=== PATIENT | female | born 1980 | race Caucasian/White ===

== ENCOUNTER 2018-06-10 08:45 | Emergency (ER) | payer MEDICAID ==
[~2018-06-10] VITALS: Ht 180.3 cm; Wt 113.6 kg
[2018-06-10 09:28] VITALS: BP 135/88
[2018-06-10] MEDS ORDERED: KETOROLAC TROMETH 60MG/2ML VIAL IM ONE (10:15)
== END 2018-06-10 11:01 | disposition home or self-care (01) ==
LOC: ER 08:47
DX: M54.41 Lumbago with sciatica, right side (principal); F17.210 Nicotine dependence, cigarettes, uncomplicated
CPT/HCPCS: 96372; 99283; J1885

== ENCOUNTER 2019-06-06 07:40 | Emergency (ER) | payer MEDICAID ==
[~2019-06-06] VITALS: Ht 180.3 cm; Wt 95.3 kg
[2019-06-06 07:45] VITALS: BP 127/76
[2019-06-06] MEDS ORDERED: KETOROLAC TROMETH 60MG/2ML VIAL IM ONE (09:00)
[2019-06-06] MEDS ORDERED: methylPREDNISolone SOD SUCC 125 MG/2 ML VL IM ONE (09:00)
== END 2019-06-06 09:31 | disposition home or self-care (01) ==
LOC: ER 07:40
DX: M54.5 Low back pain (principal); M79.651 Pain in right thigh; F17.210 Nicotine dependence, cigarettes, uncomplicated
CPT/HCPCS: 96372; 99283; J1885; J2930